=== PATIENT | male | born 2000 | race Two or more races ===

== ENCOUNTER 2023-05-29 10:35 | Outpatient (CLI) | payer MEDICAID, SELFPAY ==
--- NOTE | 2023-05-29 10:49 | US_ITS ---
WS: [id number] RIGHT UPPER QUADRANT ULTRASOUND HISTORY: ABNORMAL liver enzymes COMPARISON: None available. Liver: 16.9 cm in length. Normal size liver. Early changes of mild hepatic steatosis. No mass or bile duct dilatation. Portal Vein: Normal hepatopetal flow with monophasic waveform. Gallbladder: Normally distended gallbladder with no stones or wall thickening. CBD: 0.4 cm Pancreas: Portions of the head and tail are obscured. The body is negative. Right kidney: 10.0 cm in length. Normal size and echogenicity. No hydronephrosis or mass. Aorta and IVC: Unremarkable abdominal aorta and IVC. No ascites. IMPRESSION: 1. Normal gallbladder. 2. Normal size liver with mild hepatic steatosis. 3. Nonvisualization of a large portion of the pancreas.
== END 2023-05-29 10:36 | disposition home or self-care (01) ==
LOC: RAD 10:40
PROVIDERS: Visit Provider Nurse Practitioner Family
DX: R74.8 Abnormal levels of other serum enzymes (principal)
CPT/HCPCS: 76705